=== PATIENT | female | born 1945 | race Caucasian/White ===

== ENCOUNTER 2024-09-12 10:58 | Day surgery (SDC) | payer MEDICARE, OTHER ==
[~2024-09-12] VITALS: Ht 165.1 cm; Wt 70.7 kg
[2024-09-12] VITALS (14 sets, daily range): BP systolic 101–149; BP diastolic 50–71
[~2024-09-12 10:58] MED LIST: ATOR40TA PO; MIRALAX1714 PO; ONDA4ODT MM; OXYCODONE-ACET1 EAC5 PO
[2024-09-12] MEDS ORDERED: Lactated Ringer's 1,000 ML IV SCH (12:00)
[2024-09-12] MEDS ORDERED: CeFAZolin Sodium 2,000 MG in NS 100 ML IV SCH (12:00)
--- NOTE | 2024-09-12 12:45 | NUR ---
History, Chart, Medications and Allergies reviewed before start of procedure. Lungs clear T/O to Auscultation. Patient reports completing Chlorhexadine shower X2 prior to admission to hospital. Pre-Op teaching done. Pt verbalizes understanding. Patient confirms NPO status and agrees with scheduled surgery.
[2024-09-12] MEDS ORDERED: Bupivacaine HCl 0.25% 30 ML Injection ONE (13:18)
[2024-09-12] MEDS ORDERED: Midazolam HCl 1MG / ML 2ML Vial ONE (13:18)
[2024-09-12] MEDS ORDERED: Dexmedetomidine HCL 200 MCG / 2 ML ONE (13:20)
[2024-09-12] MEDS ORDERED: Bupivacaine 0.5% W/EPI 1:200000 SDV 30 ML Vial ONE (13:26)
--- NOTE | 2024-09-12 13:41 | NUR ---
TIME OUT FOR SCIATIC NERVE BLOCK AT 1331 PT LYING PRONE, O2 2L IN PLACE, PT ON BIOX FOR MONITORING PT MD. PT MEDICATED BY ANESTHESIA PROCEDURE START 133 PROCEDURE FINISHED 1338 PT REMAINS PRONE FOR COMFORT.
[2024-09-12] MEDS ORDERED: Rocuronium Bromide 10 MG/ML 5ML Injection IV ONE (13:48)
[2024-09-12] MEDS ORDERED: propofoL 20 ML IV ONE (13:48)
[2024-09-12] MEDS ORDERED: Ondansetron HCl 2 MG / ML 2ML Vial ONE (14:28)
[2024-09-12] MEDS ORDERED: Dexamethasone Sod Phos 10 MG/ML 1ML VIAL ONE (14:28)
--- NOTE | 2024-09-12 14:34 | NUR ---
09/12/24 1434 Agata Madera NOTED LONG SCRATCH AND SCAB TO PATIENTS MID TO UPPER BACK ON THE RIGHT SIDE
[2024-09-12] MEDS ORDERED: HYDROmorphone HCl/Pf 1MG SYR IV PRN ×2 (14:40)
[2024-09-12] MEDS ORDERED: Labetalol HCL 5 MG/ML 4ML Injection (Single Dose) IV PRN (14:40)
[2024-09-12] MEDS ORDERED: Ondansetron HCl 2 MG / ML 2ML Vial IV PRN (14:40)
[2024-09-12] MEDS ORDERED: FentaNYL Citrate 50 MCG/ML 2 ML Injection IV PRN ×2 (14:40)
[2024-09-12] MEDS ORDERED: Prochlorperazine Edisylate 10 mg Vial IV PRN (14:40)
[2024-09-12] MEDS ORDERED: FentaNYL Citrate 50 MCG/ML 2 ML Injection ONE ×2 (14:45→15:57)
[2024-09-12] MEDS ORDERED: Sugammadex Sodium 200 MG/2ML SDV (100 MG/ML) ONE (15:12)
[2024-09-12] MEDS ORDERED: HYDROmorphone HCl/Pf 1MG SYR ONE ×2 (15:45→15:55)
[2024-09-12] MEDS ORDERED: Ketorolac Tromethamine 30mg Vial ONE (15:57)
[2024-09-12] MEDS ORDERED: OxyCODONE 5 mg/Acetamin 325 mg TABLET PO PRN (16:40)
--- NOTE | 2024-09-12 17:43 | NUR ---
TO STEP POST ORIF RIGHT ANKLE. DRESSING WITH GAUZE/MEAGHAN WRAP/SPLINT CDI. PT DENIES PAIN AT THIS TIME. PT WITH BLOCK IN PRE-OP, EFFECTIVE. LESLYE PO WELL, NO NAUSEA AT THIS TIME. PT/SO VERBALIZED UNDERSTANDING OF DC INSTRUCTIONS/WOUND CARE/MEDICATIONS/FOLLOW UP. PT INSTRUCTED TO REMAIN NWB UNTIL CLEARED BY MD. PT DRESSED AND TRANSFERED WITH 2 PERSON ASSIST. DC'D VIA WC TO PRIVATE CAR WITH EVENT PLANNING INTERN AND BELONINGS.
== END 2024-09-12 17:45 | disposition home or self-care (01) ==
LOC: ORSCMMR 10:58 → ORD 12:15 → ORSCMMR 17:45
PROVIDERS: Podiatrist Foot & Ankle Surgery
PROC: 0QSJ04Z Reposition Right Fibula with Internal Fixation Device, Open Approach (ICD-10-PCS; principal; 2024-09-12 12:15)
PROC: 0QSG04Z Reposition Right Tibia with Internal Fixation Device, Open Approach (ICD-10-PCS; principal; 2024-09-12 12:15)
DX: S82.851A Displaced trimalleolar fracture of right lower leg, initial encounter for closed fracture (principal); Z79.899 Other long term (current) drug therapy
CPT/HCPCS: A6253; A9270; C1713; J0690; J1100; J1171; J1885; J2250; J2405; J2704; J3010; J7120